=== PATIENT | male | born 1955 | race Caucasian/White ===

== ENCOUNTER → 2016-10-06 | Day surgery (SDC) | payer OTHER ==
[~2016-10-06] MED LIST: Lactated Ringers 1,000 ML IV SCH; Propofol 200 MG/20 ML SDV IV ONE
[2016-10-06 09:37] VITALS: BP 127/73
--- NOTE | 2016-10-06 11:57 | OR ---
DATE OF OPERATION: 10/06/2016 PREOPERATIVE DIAGNOSIS: FOLLOW UP POLYPS. POSTOPERATIVE DIAGNOSIS: FOLLOW UP POLYPS. SURGEON: Yemi Bridges MD PROCEDURE: FULL-LENGTH COLONOSCOPY WITH POLYP REMOVAL X1. ANESTHESIA: DRAFTSPERSON due to coronary artery disease. COMPLICATIONS: None. SPECIMEN: Sigmoid hyperplastic polyp. RECOMMENDATIONS: Routine colonoscopy in 5 years. INDICATIONS: The patient has a history of prior polyps. Dr. Lamar sent him for a routine followup scope. DESCRIPTION OF PROCEDURE: The patient was prepped and draped, placed in the left lateral decubitus position. A lubricated Olympus colonoscope was inserted and easily advanced to the cecum. Direct visualization of the ileocecal valve and appendiceal orifice was accomplished. The bowel prep was fine. Upon withdrawal of the scope, the cecum, ascending, transverse colon appeared benign as did the descending colon. At approximately 55 to 60 cm in the mid sigmoid colon, the patient had a small flat hyperplastic appearing polyp, removed in its entirety with cold forceps biopsy x2. Throughout the rest of the colon, I found no signs of any polyps, masses, ulcerations, or bleeding sites. No vascular abnormalities or signs of colitis. The patient did have some diverticular disease in the distal sigmoid and into the rectosigmoid junction, moderate in severity. Rectal vault appeared benign. Retroflexing the scope in the rectum showed no anal lesions. Air was then suctioned and scope was removed without complication. ROCK/VENANCIO /[id number]
== END ==
LOC: CC.SDS 07:47
PROVIDERS: ATTEND Family Medicine
DX: Z12.11 Encounter for screening for malignant neoplasm of colon (principal); D12.5 Benign neoplasm of sigmoid colon; K57.30 Diverticulosis of large intestine without perforation or abscess without bleeding; Z88.1 Allergy status to other antibiotic agents; Z88.2 Allergy status to sulfonamides; Z79.82 Long term (current) use of aspirin; Z79.899 Other long term (current) drug therapy
CPT/HCPCS: 45380; J2704; J7120

== ENCOUNTER 2018-05-08 15:21 | Emergency (ER) | payer OTHER ==
[2018-05-08 16:01] LABS: CHLORIDE,CL 101 mEq/L (98-106); SODIUM,NA 140 mEq/L (136-145)
--- NOTE | 2018-05-08 16:12 | EDM.PDOC ---
ED HPI GENERAL MEDICAL PROBLEM - General Stated Complaint: PEEING BLOOD Time Seen by Provider: 05/08/18 16:00 Source of Information: Reports: Patient History Limitations: Reports: No Limitations - History of Present Illness INITIAL COMMENTS - FREE TEXT/NARRATIVE: States that he noted blood in urine and was concerned. He denies any discomfort or feeling ill. Is on xarelto for a fib and did take some advil yesterday and questions if this could be the cause of this. He states that he has no flank pain. Does admit to doing a lot of heavy lifting lately and would have held it against his abdomen when lifting. Onset: Gradual Associated Symptoms: Denies: Fever/Chills - Related Data Allergies Allergy/AdvReac Type Severity Reaction Status Date / Time sulfamethoxazole Allergy Cannot Verified 05/08/18 15:33 [From Bactrim] Remember trimethoprim [From Bactrim] Allergy Cannot Verified 05/08/18 15:33 Remember Home Meds: Home Meds Fish Oil/[place]-3 Fatty Acids [Fish Oil] 1,200 mg PO DAILY 02/23/15 [History] Losartan [Cozaar] 50 mg PO DAILY 02/23/15 [History] Nitroglycerin [Nitrostat] 0.4 mg SL ASDIRECTED PRN 02/23/15 [History] Rosuvastatin Calcium [Crestor] 20 mg PO DAILY 02/23/15 [History] Ubidecarenone [Coq10] 100 mg PO DAILY 02/23/15 [History] Metoprolol Succinate [Toprol XL 50mg] 50 mg PO BID 05/08/18 [History] Past Medical History Other Cardiovascular History: heart attack 2007 Other Musculoskeletal History: high ankle break Social & Family History - Tobacco Use Smoking Status *Q: Never Smoker ED ROS GENERAL - Review of Systems Review Of Systems: See Below Constitutional: Denies: Fever, Chills GI/Abdominal: Reports: No Symptoms. Denies: Abdominal Pain : Reports: Hematuria. Denies: Dysuria, Flank Pain, Frequency, Urinary Retention Musculoskeletal: Reports: No Symptoms Skin: Reports: No Symptoms Neurological: Reports: No Symptoms ED EXAM, RENAL/ - Physical Exam Exam: See Below Exam Limited By: No Limitations General Appearance: Alert, WD/WN, No Apparent Distress Respiratory/Chest: No Respiratory Distress, Lungs Clear, Normal Breath Sounds Cardiovascular: Regular Rate, Rhythm GI/Abdominal: Normal Bowel Sounds, Soft, Non-Tender, No Organomegaly, Other (No CVA tenderness noted.) Neurological: Alert, Oriented Skin Exam: Warm, Dry Course - Vital Signs Last Recorded V/S: Last Vital Signs Temp 98.3 F 05/08/18 15:30 Pulse 63 05/08/18 15:30 Resp 20 05/08/18 15:30 BP 176/86 H 05/08/18 15:30 Pulse Ox 99 05/08/18 15:30 - Orders/Labs/Meds Labs: Laboratory Tests 05/08/18 05/08/18 05/08/18 Range/Units 15:51 15:51 15:51 WBC 9.2 (5.0-10.0) 10^3/uL RBC 4.25 L (4.50-6.00) 10^6/uL Hgb 13.5 L (14.0-18.0) g/dL Hct 40.1 (40.0-54.0) % MCV 94.4 H (82.0-94.0) fL MCH 31.8 (27.0-32.0) pg MCHC 33.7 (33.0-38.0) g/dL RDW Coeff of Abhi 12.7 (11.0-15.0) % Plt Count 254 (150-400) 10^3/uL Neut % (Auto) 73.9 (35-85) % Lymph % (Auto) 16.2 (10-55) % Ness % (Auto) 7.6 (0-16) % Eos % (Auto) 2.1 (0-5) % Baso % (Auto) 0.2 (0-3) % Neut # (Auto) 6.80 (1.80-7.00) 10^3/uL Lymph # (Auto) 1.49 (1.00-4.80) 10^3/uL Ness # (Auto) 0.70 (0.00-0.80) 10^3/uL Eos # (Auto) 0.19 (0.00-0.45) 10^3/uL Baso # (Auto) 0.02 10^3/uL Sodium 140 (136-145) mEq/L Potassium 4.1 (3.5-5.0) mEq/L Chloride 101 (98-106) mEq/L Carbon Dioxide 34 H (21-32) mmol/L BUN 22 H (7-18) mg/dL Creatinine 1.1 (0.7-1.3) mg/dL Est Cr Clr Drug Dosing TNP Estimated GFR (MDRD) > 60 (>=60) mL/min Glucose 88 (75-99) mg/dL Calcium 9.0 (8.4-10.1) mg/dL C-Reactive Protein < 0.2 L (0.2-0.8) mg/dL Urine Color Red (YELLOW) Urine Appearance Cloudy (CLEAR) Urine pH 7.0 (4.5-8.0) Ur Specific [place] 1.020 (1.003-1.020) Urine Protein 30 H (NEGATIVE) mg/dL Urine Glucose (UA) Negative (NEGATIVE) mg/dL Urine Ketones Negative (NEGATIVE) mg/dL Urine Occult Blood Large H (NEGATIVE) Urine Nitrite Negative (NEGATIVE) Urine Bilirubin Negative (NEGATIVE) Urine Urobilinogen 0.2 (0.2-1.0) EU/dL Ur Leukocyte Esterase Negative (NEGATIVE) Urine RBC Packed H (0-5) /HPF Urine WBC Not seen (0-5) /HPF Departure - Departure Time of Disposition: 16:11 Disposition: Home, Self-Care 01 Condition: Good Clinical Impression: Painless hematuria - Discharge Information *PRESCRIPTION DRUG MONITORING PROGRAM REVIEWED*: No *COPY OF PRESCRIPTION DRUG MONITORING REPORT IN PATIENT SHEILA: No Forms: ED Department Discharge Additional Instructions: hold xarelto tomorrow Push fluids as much as possible Avoid heavy lifting or lifting against abdomen Recheck if blood does not resolve. - Problem List & Annotations (1) Painless hematuria SNOMED Code(s): 166859186 Code(s): R31.9 - HEMATURIA, UNSPECIFIED Status: Acute Priority: High - Problem List Review Problem List Initiated/Reviewed/Updated: Yes
[2018-05-08 16:49] VITALS: BP 176/86
== END 2018-05-08 16:28 | disposition home or self-care (01) ==
LOC: CC.ED 15:21
DX: R31.9 Hematuria, unspecified (principal); Z88.2 Allergy status to sulfonamides; Z79.899 Other long term (current) drug therapy
CPT/HCPCS: 36415; 80048; 81001; 85025; 86140; 99283